=== PATIENT | female | born 1940 | race Caucasian/White ===

== ENCOUNTER 2019-08-29 13:02 | Emergency (ER) | payer MEDICARE ==
--- NOTE | 2019-08-29 13:57 | ED Physician Documentation ---
PD HPI URI - Stated complaint Stated Complaint: FLU LIKE SX - Chief complaint Chief Complaint: General - History obtained from History obtained from: Patient - History of Present Illness Timing - onset: How many days ago (5-6) Timing duration: Days (5-6) Timing details: Gradual onset Associated symptoms: Fever, Chills, Dry cough, Dyspnea. No: NVD Contributing factors: Travel (Flew out from [place] to visit with her daughter about a week and a half ago. She got ill shortly after arrival. She is having fevers and cough and congestion which has been worsening. There is no pedal edema no calf pains.). No: Sick contact, Immunocompromised, COPD / asthma Worsened by: Activity Similar symptoms before: Has not had sx before Recently seen: Not recently seen Review of Systems Constitutional: reports: Fever, Chills, Myalgias, Fatigue Nose: reports: Congestion. denies: Rhinorrhea / runny nose Throat: denies: Sore throat Cardiac: denies: Chest pain / pressure, Palpitations, Pedal edema Respiratory: reports: Dyspnea, Cough, Wheezing GI: denies: Nausea, Vomiting, Diarrhea Neurologic: reports: Generalized weakness. denies: Near syncope, Altered mental status, Headache PD PAST MEDICAL HISTORY - Past Medical History Past Medical History: Yes Cardiovascular: Congestive heart failure, Atrial fibrillation Respiratory: None Neuro: None Endocrine/Autoimmune: None - Past Surgical History Cardiovascular: Pacemaker - Present Medications Home Medications: Ambulatory Orders Medication Instructions Recorded Confirmed Albuterol Sulf [Ventolin Hfa 2 puffs INH Q4HR PRN #1 inhaler 08/29/19 Inhaler] Benzonatate [Tessalon Perle] 100 mg PO TID PRN #25 capsule 08/29/19 Doxycycline Hyclate 100 mg PO BID #20 capsule 08/29/19 Inhaler, Assist Devices 1 each MC QID #1 spacer 08/29/19 [Breatherite] dexAMETHasone [Decadron] 4 mg PO DAILY #5 tablet 08/29/19 - Allergies Allergies/Adverse Reactions: Allergies Allergy/AdvReac Type Severity Reaction Status Date / Time No Known Drug Allergies Allergy Verified 08/29/19 13:07 PD ED PE NORMAL - Vitals Vital signs reviewed: Yes - General General: Alert and oriented X 3, No acute distress, Well developed/nourished - HEENT HEENT: Moist mucous membranes, Pharynx benign - Neck Neck: Supple, no meningeal sign, No adenopathy, No JVD - Cardiac Cardiac: RRR, No murmur - Respiratory Respiratory: No: Clear bilaterally (Diffuse expiratory wheezing with some mild Tory phase. There is congestion noted in the right mid lung field. No crackles are present.) - Abdomen Abdomen: Soft, Non tender - Derm Derm: Normal color, Warm and dry - Extremities Extremities: No tenderness to palpate, Normal ROM s pain, No edema, No calf tenderness / cord - Neuro Neuro: Alert and oriented X 3, No motor deficit, Normal speech Results - Vitals Vitals: Vital Signs - 24 hr 08/29/19 08/29/19 13:07 14:39 Temperature 37.3 C Heart Rate 67 68 Respiratory 16 16 Rate Blood Pressure 172/70 H O2 Saturation 92 Oxygen O2 Source Room air - Labs Labs: Laboratory Tests 08/29/19 13:12 Influenza A (Rapid) Negative Influenza B (Rapid) Negative - Rads (name of study) chest xray Radiology: Prelim report reviewed, EMP read contemporaneously, See rad report PD MEDICAL DECISION MAKING - ED course Complexity details: considered differential (She does have pneumonia. Her oxygenation is adequate. She improves with a nebulizer treatment with less wheezing. She does seem stable for outpatient treatment. She requests a note for her travel insurance to delay return flight which is supposed to be in just a few days.), d/w patient Departure - Departure Disposition: 01 Home, Self Care Clinical Impression: Pneumonia Qualifiers: Pneumonia type: due to unspecified organism Laterality: right Lung location: middle lobe of lung Qualified Code(s): J18.1 - Lobar pneumonia, unspecified organism Condition: Stable Record reviewed to determine appropriate education?: Yes Instructions: ED Pneumonia Adult Prescriptions: Albuterol Sulf [Ventolin Hfa Inhaler] 2 puffs INH Q4HR PRN #1 inhaler PRN Reason: Shortness Of Air/Wheezing Benzonatate [Tessalon Perle] 100 mg PO TID PRN #25 capsule PRN Reason: Cough dexAMETHasone [Decadron] 4 mg PO DAILY #5 tablet Doxycycline Hyclate 100 mg PO BID #20 capsule Inhaler, Assist Devices [Breatherite] 1 each MC QID #1 spacer Comments: Use the albuterol inhaler 2 puffs 4 times a day with spacer for the next 7 to 10 days. This is to decrease wheezing and improve aeration. Doxycycline antibiotic twice daily for 10 days. Take it with food. Decadron steroid for inflammation of the airways to decrease cough and wheezing. Tessalon as needed for cough suppression. Stay well-hydrated. Tylenol if needed for fevers and pains. Recheck if not improving well over the next few days and return sooner if worsening. He will likely have continued cough and feeling of illness for even up to a month. However the acute illness of fever and trouble breathing should decrease in the short-term. Forms: Activity restrictions
[2019-08-29] MEDS ORDERED: ALBUTEROL NEB 2.5 MG/3 ML INH STA (14:14)
[2019-08-29] MEDS ORDERED: DEXAMETHASONE 10 MG/ML VIAL PO STA (14:14)
[2019-08-29] MEDS ORDERED: BENZONATATE 100 MG CAPSULE PO STA (14:14)
[2019-08-29] MEDS ORDERED: CHERRY SYRUP 10 ML UDC PO ONE (14:14)
[2019-08-29] MEDS ORDERED: DOXYCYCLINE 100 MG TABLET PO STA (14:34)
--- NOTE | 2019-08-29 14:54 | XRAY Report ---
Reason: dyspnea/ cough Procedure Date: 08/29/2019 Accession Number: [id number] / [id number] Procedure: XR - Chest 2 View X-Ray CPT Code: 85555 FULL RESULT: EXAM: CHEST RADIOGRAPHY EXAM DATE: 08/29/2019 02:36 PM. CLINICAL HISTORY: Dyspnea/cough. COMPARISON: None. TECHNIQUE: 2 views. FINDINGS: Lungs/Pleura: There is segmental airspace consolidation of posterior segment of the right upper lobe. Trace bilateral pleural effusions. No extra ventilatory air. Mediastinum: Heart size is upper limits of normal. Mediastinal and hilar contours are within expected limits. Other: Left pectoral dual-lead pacer with atrial and ventricular leads in expected position. IMPRESSION: Right upper lobe pneumonia. Trace bilateral pleural effusions. RADIA
[2019-08-29 15:02] VITALS: BP 154/55
== END 2019-08-29 15:05 | disposition home or self-care (01) ==
LOC: ED 13:02
DX: J18.9 Pneumonia, unspecified organism (principal)
CPT/HCPCS: 71046; 87275; 87276; 99284; A9270